=== PATIENT | female | born 1965 | race Caucasian/White ===

== ENCOUNTER 2018-02-24 16:19 | Emergency (ER) | payer MEDICAID ==
[~2018-02-24] VITALS: Ht 175.3 cm; Wt 100.1 kg
[2018-02-24 16:26] VITALS: BP 115/75
[2018-02-24] MEDS ORDERED: PRAV10TA2 PO (16:39)
[2018-02-24] MEDS ORDERED: SERT25TA PO (16:39)
[2018-02-24] MEDS ORDERED: LEVO25TA4 PO (16:39)
[2018-02-24] MEDS ORDERED: KETOROLAC 30 MG/1 ML ONE (16:43)
[2018-02-24] MEDS ORDERED: KETOROLAC 30 MG/1 ML IM ONE (17:00)
== END 2018-02-24 18:46 | disposition home or self-care (01) ==
LOC: ED 17:58
DX: S70.01XA Contusion of right hip, initial encounter (principal); S80.01XA Contusion of right knee, initial encounter; E03.9 Hypothyroidism, unspecified; E78.5 Hyperlipidemia, unspecified; F17.200 Nicotine dependence, unspecified, uncomplicated; Z90.49 Acquired absence of other specified parts of digestive tract; Z88.1 Allergy status to other antibiotic agents; Z88.0 Allergy status to penicillin; Z88.6 Allergy status to analgesic agent; W19.XXXA Unspecified fall, initial encounter; Y93.89 Activity, other specified; Y99.8 Other external cause status; Y92.89 Other specified places as the place of occurrence of the external cause; Z79.899 Other long term (current) drug therapy
CPT/HCPCS: 29505; 72192; 73502; 99284; J1885

== ENCOUNTER 2018-07-25 15:35 | Emergency (ER) | payer MEDICAID ==
[~2018-07-25] VITALS: Ht 172.7 cm; Wt 100.0 kg
[~2018-07-25 15:35] MED LIST: LEVO25TA4 PO; PRAV10TA2 PO; SERT25TA PO
--- NOTE | 2018-07-25 15:41 | NUR ---
PT BROUGHT IN BY KIRSTIN. PT'S THERAPIST CALLED POLICE AT THERAPIST OFFECE TODAY AT 14:00. POLICE WERE CALLED D/T VERBAL ALTERCATION BETWEEN PT AND HER SON AT THERAPIST'S OFFICE. PT DENIES SI/HI. PT STATES "I HAVE HALUCINATIONS SOMETIMES." PT MILDLY ANXIOUS BUT COOPERATIVE AT THIS TIME.
[2018-07-25] MEDS ORDERED: BUSPAR (15:52)
--- NOTE | 2018-07-25 16:05 | NUR ---
PT MEDICATED PER EMAR. PT TOLERATED WELL. PT AOX4. RESPS EVEN AND UNLABORED. BP AND SPO2 MONITORS IN PLACE. SITTER MONITORING FROM [facility] FOR SAFETY.
--- NOTE | 2018-07-25 16:31 | NUR ---
PRECEPTOR NOTE: PT UP TO BATHROOM, GAIT STEADY. URINE COLLECTED AND SENT TO LAB.
[2018-07-25 16:44] LABS: BASOPHILS # (AUTO) 0.13 x10^3/uL (0-0.1); BASOPHILS % (AUTO) 1 % (0-1); EOSINOPHILS # (AUTO) 0.35 x10^3/uL (0-0.4); EOSINOPHILS % (AUTO) 4 % (1-7); LYMPHOCYTES # (AUTO) 2.66 x10^3/uL (1-3.4); LYMPHOCYTES % (AUTO) 28 % (22-44); MD NO; MEAN CORPUSCULAR HEMOGLOBIN 32.2 pg (27.0-34.8); MEAN CORPUSCULAR HGB CONC 34.2 g/dL (32.4-35.8); MEAN CORPUSCULAR VOLUME 94.2 fL (80-100); MEAN PLATELET VOLUME 7.5 fL (7.4-10.4); MONOCYTES # (AUTO) 0.63 x10^3/uL (0.2-0.8); MONOCYTES % (AUTO) 7 % (2-9); NEUTROPHILS # (AUTO) 5.73 x10^3/uL (1.8-6.8); NEUTROPHILS % (AUTO) 60 % (42-75); PLATELET COUNT 216 x10^3/uL (130-400); RED BLOOD COUNT 5.46 x10^6/uL (3.82-5.3); RED CELL DISTRIBUTION WIDTH 13.4 % (9.6-15.2)
[2018-07-25 16:46] LABS: MICROSCOPIC NOT IND
--- NOTE | 2018-07-25 16:46 | NUR ---
TASK RN: TELE PSYCH CONSULT INITIATED AT THIS TIME
[2018-07-25 16:51] LABS: CULTURE INDICATED? NO
[2018-07-25 16:56] LABS: CHLORIDE 106 mmol/L (98-107)
[2018-07-25 16:58] LABS: AMPHETAMINE SCREEN, URINE Negative (Negative); BARBITURATE SCREEN, URINE Negative (Negative); BENZODIAZEPINE SCREEN, URINE Negative (Negative); CANNABINOID SCREEN, URINE Positive (Negative); COCAINE SCREEN, URINE Negative (Negative); METHADONE SCREEN, URINE Negative (Negative); OPIATE SCREEN, URINE Negative (Negative)
[2018-07-25 17:12] LABS: ALANINE AMINOTRANSFERASE 62 U/L (12-78); ALBUMIN 4.1 g/dL (3.4-5.0); ALKALINE PHOSPHATASE 69 U/L (45-117); ANION GAP 7 mmol/L (5-15); BILIRUBIN,TOTAL 0.3 mg/dL (0.2-1.0); CALCIUM 9.4 mg/dL (8.5-10.1); CREATININE 0.81 mg/dL (0.55-1.02); SALICYLATE LEVEL 4.5 mg/dL (2.8-20.0)
[2018-07-25 17:13] LABS: ACETAMINOPHEN < 2 mcg/mL (10-30)
--- NOTE | 2018-07-25 17:20 | NUR ---
PT GIVEN SI MEAL TRAY, TOLERATED WELL. MEAL TRAY CONSUMED 100%. PT ARRIVED WITH LEGAL HOLD PLACED PRESCHOOL ASSISTANT TEACHER AT THERAPIST'S OFFICE. PT STATES "I WAS JUST HAVING SUICIDAL THOUGHTS BUT I WOULD NEVER ACT ON THEM. I'M NOT SUICIDAL." PT IS CALM AND COOPERATIVE. SITTER MONITORING FROM HALLWAY FOR SAFETY. PT'S BELONGINGS BAGGED, LABELED AND PLACED IN LOCKED CABINET FOR SAFETY.
--- NOTE | 2018-07-25 18:13 | NUR ---
pt resting in [facility]. pt aox4. resps even and unlabored. sitter monitoring from hallway for safety. pt denies any needs and concerns at this time.
--- NOTE | 2018-07-25 18:54 | NUR ---
TELEMONITOR IN PLACE.
[2018-07-25 19:15] VITALS: BP 130/90
--- NOTE | 2018-07-25 19:15 | NUR ---
pt sitting up on gurney, awaiting telepsych consult, family at bedside, denies si or hi thoughts, room secured, vss, denies pain or needs at this time, sitter at doorway for continous monitoring.
--- NOTE | 2018-07-25 19:21 | NUR ---
DR TODD ( TELEPSYCH MD) ON TELEPHONE, UPDATED MD ON PT STATUS, MD NOTIFIED PT AWAITING TELEPSYCH CONSULT
== END 2018-07-25 20:07 | disposition home or self-care (01) ==
LOC: ED 16:08
DX: F32.9 Major depressive disorder, single episode, unspecified (principal); I10 Essential (primary) hypertension; F17.200 Nicotine dependence, unspecified, uncomplicated
CPT/HCPCS: 36415; 80053; 80307; 80329; 81003; 84443; 85025; 99283; 99284; G0480

== ENCOUNTER → 2019-12-04 | Outpatient (CLI) | payer MEDICAID ==
[~2019-12-04] MED LIST changes: +BUSPAR
== END | disposition home or self-care (01) ==
LOC: RAD 10:35
PROVIDERS: ATTEND Nurse Practitioner
DX: R05 Cough (principal)
CPT/HCPCS: 71046

== ENCOUNTER 2021-04-10 13:17 | Emergency (ER) | payer MEDICAID ==
[~2021-04-10] VITALS: Ht 172.7 cm; Wt 108.9 kg
[2021-04-10 13:21] VITALS: BP 123/81
--- NOTE | 2021-04-10 14:13 | NUR ---
education assistant: Pt ambulatory to room from lobby at this time.
[2021-04-10] MEDS ORDERED: METHOCARBAMOL 750 MG TABLET PO ONE (14:30)
[2021-04-10] MEDS ORDERED: KETOROLAC 30 MG/1 ML IM ONE (14:30)
[2021-04-10] MEDS ORDERED: KETOROLAC 30 MG/1 ML ONE (14:37)
[2021-04-10] MEDS ORDERED: METHOCARBAMOL 750 MG TABLET ONE (14:37)
--- NOTE | 2021-04-10 15:08 | NUR ---
BREAK RN: REPORT GIVEN TO FRANCHESCA SHEFFIELD
== END 2021-04-10 15:56 | disposition home or self-care (01) ==
LOC: ED 13:22
DX: M25.551 Pain in right hip (principal); M54.5 Low back pain; E78.5 Hyperlipidemia, unspecified; I10 Essential (primary) hypertension; E03.9 Hypothyroidism, unspecified; E05.90 Thyrotoxicosis, unspecified without thyrotoxic crisis or storm
CPT/HCPCS: 72110; 73502; 96372; 99284; J1885